=== PATIENT | male | born 2000 | race Caucasian/White ===

== ENCOUNTER 2019-04-14 11:15 | Observation (INO) | payer BC ==
[2019-04-14 12:24] LABS: HCT 38.8 % (39.0-53.0); HGB 13.9 gm/dL (13.0-17.5); MCHC 35.7 g/dL (31.0-37.0); MCV 86.7 fL (80.0-100.0); Mean Platelet Volume 7.8; Platelet Count 142 k/uL (150-450); RBC 4.48 m/uL (4.30-5.90); RDW 13.3 % (11.5-15.5); WBC 4.7 k/uL (3.8-10.6)
[2019-04-14 12:32] LABS: ALT 22 U/L (4-49); AST 30 U/L (17-59); African American GFR (CKD) >90 (>60 ml/min/1.73 sqM); Albumin 4.5 g/dL (3.5-5.0); Alkaline Phosphatase 70 U/L (38-126); Anion Gap 10 mmol/L; Blood Urea Nitrogen 17 mg/dL (9-20); Calcium 9.3 mg/dL (8.4-10.2); Carbon Dioxide 25 mmol/L (22-30); Chloride 104 mmol/L (98-107); Glucose 90 mg/dL (74-99); Non-African American GFR(CKD) >90 (>60 ml/min/1.73 sqM); Potassium 4.2 mmol/L (3.5-5.1); Sodium 139 mmol/L (137-145); Total Protein 7.8 g/dL (6.3-8.2)
[2019-04-14 12:38] LABS: D-Dimer 0.55 mg/L FEU (<0.60); INR 1.1 (<1.2); Partial Thromboplastin Time 24.3 sec (22.0-30.0); Prothrombin Time 11.3 sec (9.0-12.0)
--- NOTE | 2019-04-14 12:48 | XR ---
EXAMINATION TYPE: XR chest 2V DATE OF EXAM: 04/14/2019 COMPARISON: NONE HISTORY: Chest pain TECHNIQUE: Frontal and lateral views of the chest are obtained. FINDINGS: There is no focal air space opacity. No evidence for pneumothorax. No pleural effusion. The cardiac silhouette size is within normal limits. The osseous structures are grossly intact. IMPRESSION: 1. No acute cardiopulmonary process.
[2019-04-14 13:11] LABS: Band Neutrophils % 3 %; Eosinophils # (M) 0.05 k/uL (0-0.7); Lymphocytes # (M) 0.89 k/uL (1.0-4.8); Metamyelocytes # (M) 0.05 k/uL (0); Metamyelocytes % 1 %; Monocytes # (M) 0.89 k/uL (0-1.0); Neutrophils % (M) 59 %; Nucleated Red Blood Cells 0 /100 WBC (0-0); Total Cells Counted 200
[2019-04-14] MEDS ORDERED: ASPIRIN 81 MG PO STA (13:55)
[2019-04-14] MEDS ORDERED: NITROGLYCERIN OINT 1 INCH/GM PACKET TOPICAL STA (14:02)
[2019-04-14] MEDS ORDERED: MORPHINE SULFATE 4 MG/ML SYRINGE IVP STA (14:02)
--- NOTE | 2019-04-14 14:25 | ED ---
Chest Pain HPI - General Source: patient Mode of arrival: ambulatory Limitations: no limitations <Anuja Ken - Last Filed: 04/14/19 16:06> <Char Comer - Last Filed: 04/22/19 13:08> - General Chief Complaint: Chest Pain Stated Complaint: chest pain, shoulder pain Time Seen by Provider: 04/14/19 11:49 - History of Present Illness Initial Comments: 19-year-old male with history of heart murmur at , Erica ashley, presenting to the emergency department today for chief complaint of chest pain. Patient states she has had chest pressure since Thursday. Patient states she has also noted that he has pain is low back that extends up towards the shoulders bilaterally. Patient states that he has had a tough work week and his uncle is similar symptoms he's not sure if the back pain is associated given he has been doing a lot of heavy lifting during demolition. Patient states he has slight SOB, denies fever, IVDU, or URI symptoms. Patients denies cough. State he had slight headache yesterday that resolved. Patient denies hemoptysis, leg swelling, history of sudden at young age, denies any ripping tearing or sharp sensation, denies pleurtic chest pain. Patient was cleared by [facility] per mother for the heart murmur and had additional evaluation and clearance for sports. Denies any presyncope during vigorious activity. Patient states lifting made pain worse, but denies any increase with ambulation or other activities. When pain persisted today he told his famiyl who recommended coming to the ER. Upon arrival patient does not appear in acute distress. He is pleasant, no diaphoresis or levign sign. HR elevated, mild elevation of BP. (Anuja Ken) - Related Data Home Medications Medication Instructions Recorded Confirmed No Known Home Medications 04/14/19 04/14/19 Allergies Allergy/AdvReac Type Severity Reaction Status Date / Time No Known Allergies Allergy Verified 04/14/19 19:02 Review of Systems ROS Other: All systems not noted in ROS Statement are negative. <Anuja Ken - Last Filed: 04/14/19 16:06> ROS Other: All systems not noted in ROS Statement are negative. <Char Comer - Last Filed: 04/22/19 13:08> ROS Statement: Those systems with pertinent positive or pertinent negative responses have been documented in the HPI. EKG Findings - EKG Comments: EKG Findings:: Initial EKG obtained at 1213 ventricular rate 86 bpm, OK interval 166 ms, QRS latter-day 88 ms, QT/QTc is 326/[address] elevation in contiguous leads, <2mm present in V4. No ST depression or reciprocal changes. Second EKG obtained at 1522: Ventricular rate 87 bpm, OK interval 154 ms, QR latter-day 90 ms, QT/QTC 340/409 ms. This is normal sinus. No ST elevation or depression again appreciated no reciprocal changes noted. Both EKGs were personally reviewed by myself and my attending provider. <Anuja Ken - Last Filed: 04/14/19 16:06> Past Medical History Additional Past Medical History / Comment(s): heart murmur History of Any Multi-Drug Resistant Organisms: None Reported Past Surgical History: No Surgical Hx Reported Past Psychological History: No Psychological Hx Reported Smoking Status: Smoker, current status unknown Past Alcohol Use History: None Reported Past Drug Use History: None Reported <Anuja Ken - Last Filed: 04/14/19 16:06> General Exam Limitations: no limitations <Anuja Ken - Last Filed: 04/14/19 16:06> - General Exam Comments Initial Comments: General: The patient is awake and alert, in no distress, and does not appear acutely ill. Eye: +3 mm pupils are equal, round and reactive to light, extra-ocular movements are intact. No nystagmus. There is normal conjunctiva bilaterally. No signs of icterus. Ears, nose, mouth and throat: There are moist mucous membranes and no oral lesions. Neck: The neck is supple, there is no tenderness or JVD. Cardiovascular: There is a regular rate and rhythm. No discernable murmur, No rub or gallop is appreciated. Respiratory: Lungs are clear to auscultation, respirations are non-labored, breath sounds are equal. No wheezes, stridor, rales, or rhonchi. Gastrointestinal: non-distended, non-tender abdomen without masses or organomegaly noted. There is no rebound or guarding present. Musculoskeletal: Normal inspection of the back reproducible tenderness to palpation of the paravertebral muscles of the thoracic and lumbar spine. Normal ROM, no tenderness. Strength 5/5. Sensation intact. Radial and DP pulses equal bilaterally 2+. Neurological: A&O x 3. CN II-XII intact grossly, There are no obvious motor or sensory deficits. Coordination appears grossly intact. Speech is normal. Skin: Skin is warm and dry and no rashes or lesions are noted. No LE edema, or calf pain Psychiatric: Cooperative, appropriate mood & affect, normal judgment. (Anuja Ken) Course <Anuja Ken - Last Filed: 04/14/19 16:06> Vital Signs 04/14/19 04/14/19 04/14/19 11:29 13:31 14:41 Temperature 99.2 F Pulse Rate 108 H 85 81 Pulse Rate [ Manager Home ] Respiratory 19 18 18 Rate Blood Pressure 127/72 139/87 145/75 Blood Pressure [Right Arm] O2 Sat by Pulse 98 98 100 Oximetry 04/14/19 04/14/19 04/14/19 14:43 17:36 20:31 Temperature 98.3 F Pulse Rate 85 Pulse Rate [ 85 Manager Home ] Respiratory 18 18 Rate Blood Pressure 130/83 Blood Pressure 148/84 [Right Arm] O2 Sat by Pulse 97 97 Oximetry 04/14/19 20:41 Temperature 98.0 F Pulse Rate Pulse Rate [ 84 Manager Home ] Respiratory 16 Rate Blood Pressure Blood Pressure 148/84 [Right Arm] O2 Sat by Pulse 98 Oximetry - Reevaluation(s) Reevaluation #1: Cardiology consulted, faxed EKGs, spoke with cardiac slab worker nurse Jorge who was speaking for farm management teacher-- recommended admission with heparin, ECHO. Patient remains stable in ER. 04/14/19 16:10 (Anuja Ken) Chest Pain MDM <Anuja Ken - Last Filed: 04/14/19 16:06> <Char Comer - Last Filed: 04/22/19 13:08> - MDM Very well appearing 19-year-old male presenting for chest pressure since Thursday. Patient has history of vigorous activity and was also complaining of back and shoulder pain after she felt this was musculoskeletal that was reproducible on examination. Did not initially appear typical. Patient's EKG nonacute findings. Troponin revealed elevation at 0.295. This is concerning given family history of premature CAD. Patient CXR no acute findings. CT angio (-) for dissection pulmonary embolism. Patient VS remain stable in the ER. Patient temperature throughout visit 99.1F. Patient denies URI symptoms. At this time it is not clear etiology, ddx including myocardiopathy, NSTEMI--patient has no murmur obvious to auscultation cannot r/o valvular disease. Patient is agreeable to admission. Denies melanotic stool. Heparin initiated in the ER. Patient admitted appearing well in stable condition. I did discuss case at length with Dr. Comer who is agreeable to plan, and admission. (Anuja Ken) I was available for consultation in the emergency department. The history and physical exam were done by the midlevel provider. I was consulted for this patients care. I reviewed the case with the midlevel provider and based on their presentation of the patient, I agree with the assessment, medical decision making and plan of care as documented. The case was discussed with Dr. Manning and the farm management teacher conveyor operator who recommended heparinizing the patient as he does not have any contraindications. The patient was admitted to the floor in stable condition. Chart was dictated using [employer] dictation software. Attempts were made to correct any dictation errors however some typographical errors may persist. (Char Comer) Disposition Is patient prescribed a controlled substance at d/c from ED?: No Time of Disposition: 16:07 Decision to Admit Reason: Admit from EC Decision Date: 04/14/19 Decision Time: 16:07 <Anuja Ken - Last Filed: 04/14/19 16:06> <Char Comer - Last Filed: 04/22/19 13:08> Clinical Impression: Chest pain, Elevated troponin, NSTEMI (non-ST elevated myocardial infarction) Disposition: ADMITTED IP TO THIS [facility] Condition: Serious
[2019-04-14] MEDS ORDERED: ONDANSETRON 4 MG/2 ML VIAL IVP STA (14:32)
--- NOTE | 2019-04-14 14:58 | CT ---
EXAMINATION TYPE: CT angio thor/abd pel aorta DATE OF EXAM: 04/14/2019 COMPARISON: none HISTORY: Chest pain and traci arm pain and neck pain CT DLP: 1348.5 mGycm CONTRAST: CTA thoracic and abdominal aorta with 3-D reconstruction is performed and without and with IV Contras t, patient injected with 100 mL of Isovue 370. Contrast CTA of the thoracic and abdominal aorta was performed from the lung apex through the base of the pelvis. 3-D reconstruction imaging obtained at a separate workstation. CT Chest: THORACIC AORTA: There is no evidence for aneurysm. No dissection or mediastinal hematoma. Mild ath eromatous changes are seen. LUNGS: The lungs are clear and free of infiltrate or atelectasis. No pulmonary nodule or mass is det ected. No pleural effusion or CT evidence of interstitial lung disease. MEDIASTINUM: No evidence for pulmonary embolism. The heart is not enlarged. No evidence for mediasti nal mass or adenopathy. HILAR STRUCTURES: No evidence for mass. No hilar adenopathy is appreciated. OTHER: No significant abnormality. CONTRAST CT ABDOMEN AND PELVIS ABDOMINAL AORTA: No evidence for abdominal aortic aneurysm. No dissection. Iliac vessels are symmet lee and patent. LIVER/GB- No significant abnormality is seen. PANCREAS- No significant abnormality is seen. SPLEEN- No significant abnormality is seen. ADRENALS- No significant abnormality is seen. KIDNEYS/BLADDER- No significant abnormality is seen. BOWEL- No Significant abnormality GENITAL ORGANS: No gross abnormality seen. LYMPH NODES- No greater than 1cm abdominal or pelvic lymph nodes areappreciated. OSSEOUS STRUCTURES- No significant abnormality is seen. OTHER- No significant abnormality is seen. IMPRESSION- No evidence for dissection or pulmonary embolism.
[2019-04-14] MEDS ORDERED: HEPARIN SODIUM,PORCINE 5,000 UNIT/ML 1 ML VIAL IV ONE (15:54)
[2019-04-14] MEDS ORDERED: HEPARIN SODIUM,PORCINE 5,000 UNIT/ML 1 ML VIAL IV PRN (15:54)
[2019-04-14] MEDS ORDERED: HEPARIN SOD,PORK IN 0.45% NACL 25,000 UNIT in 0.45% NACL 1 250ML.BAG IV SCH (16:00)
[2019-04-14 16:04] LABS: Appearance,Urine Clear (Clear); Bilirubin,Urine Negative (Negative); Blood,Urine Negative (Negative); Color,Urine Yellow; Glucose,Urine (UA) Negative (Negative); Ketones,Urine 1+ (Negative); Leukocyte Esterase,Urine Negative (Negative); Nitrite,Urine Negative (Negative); PH, Urine 6.5 (5.0-8.0); Protein,Urine Negative (Negative); Urobilinogen,Urine <2.0 mg/dL (<2.0)
[2019-04-14 16:13] LABS: Amphetamine Screen,Urine Not Detected (NotDetected); Barbiturate Screen,Urine Not Detected (NotDetected); Benzodiazepines Screen,Urine Not Detected (NotDetected); Cocaine Screen,Urine Not Detected (NotDetected); Methadone Screen, Urine Not Detected (NotDetected); Opiate Screen,Urine Detected (NotDetected); Oxycodone Screen, Urine Not Detected (NotDetected); Phencyclidine Screen,Urine Not Detected (NotDetected); Tricyclic Antidepressant,Urine Not Detected (NotDetected); Urn Cannabinoid Scrn Not Detected (NotDetected)
[2019-04-14] MEDS ORDERED: NITROGLYCERIN SL TABS 0.4 MG TAB SUBLINGUAL PRN (16:14)
[2019-04-14 16:31] LABS: Specific Gravity,Urine >1.050 (1.001-1.035)
[2019-04-14] MEDS ORDERED: ACETAMINOPHEN TAB 325 MG TAB PO STA (17:21)
[2019-04-14] MEDS ORDERED: MORPHINE SULFATE 2 MG/ML SYRINGE IVP PRN (23:04)
--- NOTE | 2019-04-14 23:44 | P.HPIM ---
History of Present Illness H&P Date: 04/14/19 Chief Complaint: Chest pain Patient is a 19-year-old male with a known history of heart murmur at and was seen at [facility], cleared for sports during his eighth grade, currently [employer] socially came to ER with the complaints of chest pain. Patient says that he woke up with chest pain on Thursday morning, daily pressure-like right upper chest and radiated into the left shoulder and arm and to the back. He needs assist with shortness of breath and nausea, episodes of vomiting. Patient also felt sweaty and dizzy. Patient cannot likely related to gastric reflex. Pain has been on and off since then. Patient says that he has had a rough week with a lot of heavy lifting during the motion. Otherwise denied any cough or sputum production. Patient did have slight headache. No leg swelling. No orthopnea no PND. Denied any hematemesis or melena. No complaints of abdominal pain. Denied any syncopal episode. Denied any exertional dyspnea. Patient has been this persistent pain since Thursday and he told his family who recommended to come to ER. Patient was tachycardic with heart rate 108 on admission. Blood pressure is stable. EKG showed normal sinus rhythm. Chest x-ray showed no acute cardio pulmonary process CT thorax no evidence of dissection or pulmonary embolism. Troponin 0.294, 0.366 D-dimer not elevated. CK 72 UDS positive for opiates. Other laboratory data reviewed. Review of Systems Constitutional: Patient denies any fever or chills . No generalized weakness or weight loss. Abdomen: Patient denied nausea vomiting and diarrhea and abdominal pain. Cardiovascular: Patient does have chest pain with of breath no palpitations. No leg swelling Respiratory: patient denied any cough is from production. No shortness of breath Neurologic: Patient denied any numbness or tingling headache. Musculoskeletal: Patient denies any complaints of joint swelling or deformity. Skin: Negative Psychiatric: Negative Endocrine: No heat or cold intolerance. No recent weight gain. Genitourinary: No dysuria or hematuria. All other 14 point ROS negative except the above Past Medical History Additional Past Medical History / Comment(s): heart murmur History of Any Multi-Drug Resistant Organisms: None Reported Past Surgical History: No Surgical Hx Reported Past Psychological History: No Psychological Hx Reported Smoking Status: Smoker, current status unknown Past Alcohol Use History: None Reported Past Drug Use History: None Reported Medications and Allergies Home Medications Medication Instructions Recorded Confirmed Type No Known Home Medications 04/14/19 04/14/19 History Allergies Allergy/AdvReac Type Severity Reaction Status Date / Time No Known Allergies Allergy Verified 04/14/19 19:02 Physical Exam Vitals: Vital Signs Temp Pulse Resp BP Pulse Ox 04/14/19 17:36 85 18 130/83 97 04/14/19 14:43 98.3 F 04/14/19 14:41 81 18 145/75 100 04/14/19 13:31 85 18 139/87 98 04/14/19 11:29 99.2 F 108 H 19 127/72 98 Intake and Output 04/14/19 04/14/19 04/14/19 06:59 14:59 22:59 Other: Weight 95.028 kg PHYSICAL EXAMINATION: Patient is lying in the bed comfortably, no acute distress, awake alert and oriented.. HEENT: Normocephalic. Neck is supple. Pupils reactive. Nostrils clear. Oral cavity is moist. Ears reveal no drainage. Neck reveals no JVD, carotid bruits, or thyromegaly. CHEST EXAMINATION: Trachea is central. Symmetrical expansion. Lung dalton clear to auscultation and percussion. CARDIAC: Normal S1, S2 with no gallops. No murmurs ABDOMEN: Soft. Bowel sounds normal. No organomegaly. No abdominal bruits. Extremities: reveal no edema. No clubbing or cyanosis Neurologically awake, alert, oriented x3 with well-coordinated movements. No focal deficits noted Skin: No rash or skin lesions. Psychiatric: Coperative. Nonsuicidal Musculoskeletal: No joint swelling or deformity. Normal range of motion. Results CBC & Chem 7: 04/14/19 12:07 04/14/19 12:07 Labs: Abnormal Lab Results - Last 24 Hours (Table) 04/14/19 04/14/19 04/14/19 Range/Units 12:07 12:07 15:41 Hct 38.8 L (39.0-53.0) % Plt Count 142 L (150-450) k/uL Lymphocytes # (Manual) 0.89 L (1.0-4.8) k/uL Metamyelocytes # (Man) 0.05 H (0) k/uL Troponin I 0.294 H* (0.000-0.034) ng/mL Ur Specific [place] >1.050 H (1.001-1.035) Urine Ketones 1+ H (Negative) Urine Opiates Screen Detected H (NotDetected) 04/14/19 Range/Units 18:44 Hct (39.0-53.0) % Plt Count (150-450) k/uL Lymphocytes # (Manual) (1.0-4.8) k/uL Metamyelocytes # (Man) (0) k/uL Troponin I 0.366 H* (0.000-0.034) ng/mL Ur Specific [place] (1.001-1.035) Urine Ketones (Negative) Urine Opiates Screen (NotDetected) Thrombosis Risk Factor Assmnt - DVT/VTE Prophylaxis DVT/VTE Prophylaxis: Pharmacologic Prophylaxis ordered Assessment and Plan Assessment: Acute non-ST elevated NH with elevated troponin levels History of heart murmur since childhood Social Vaping UDS positive for opiates Plan: Patient is being continued on heparin drip. Continue with aspirin. Lipid profile was ordered. Continue with telemetry monitoring and cardiology was consulted. Discussed with his family at bedside in detail. Further recommendations based on the clinical course. Time with Patient: Greater than 30
[2019-04-14] MEDS: ACETAMINOPHEN TAB 325 MG TAB PO PRN (23:59)
[2019-04-15 07:05] LABS: Cholesterol 107 mg/dL (<200); HDL Cholesterol 35 mg/dL (40-60); LDL Cholesterol,Calculated 55 mg/dL (0-99); Triglycerides 83 mg/dL (<150)
[2019-04-15 08:22] LABS: HCT 39.5 % (39.0-53.0); HGB 14.1 gm/dL (13.0-17.5); MCH 31.1 pg (25.0-35.0); MCHC 35.7 g/dL (31.0-37.0); MCV 87.2 fL (80.0-100.0); Mean Platelet Volume 8.6; Platelet Count 116 k/uL (150-450); RBC 4.53 m/uL (4.30-5.90); RDW 13.3 % (11.5-15.5); WBC 4.2 k/uL (3.8-10.6)
[2019-04-15] MEDS ORDERED: ASPIRIN 325 MG TAB PO SCH (09:00)
[2019-04-15 09:48] LABS: Band Neutrophils % 3 %; Lymphocytes # (M) 1.55 k/uL (1.0-4.8); Neutrophils % (M) 48 %; Nucleated Red Blood Cells 0 /100 WBC (0-0); Total Cells Counted 100
[2019-04-15] MEDS ORDERED: ALPRAZolam 0.5 MG TAB PO PRN (10:18)
[2019-04-15] MEDS ORDERED: SODIUM CHLORIDE 0.9% 1,000 ML in EMPTY BAG 1 BAG IV ONE (10:18)
[2019-04-15] MEDS ORDERED: ATORVASTATIN 80 MG TAB PO STA (10:18)
[2019-04-15] MEDS ORDERED: ALPRAZolam 0.25 MG TAB PO PRN (10:18)
[2019-04-15] MEDS ORDERED: LIDOCAINE 1% INJ 10MG/ML (20 ML MDV) ONE ×2 (10:47)
--- NOTE | 2019-04-15 11:01 | ECHOF ---
Referral Reason:chest pain, trop MEASUREMENTS -------- HEIGHT: 185.4 cm WEIGHT: 94.8 kg BP: RVIDd: 2.7 cm (< 3.3) IVSd: 0.8 cm (0.6 - 1.1) LVIDd: 4.4 cm (3.9 - 5.3) LVPWd: 1.1 cm (0.6 - 1.1) IVSs: 1.5 cm LVIDs: 3.1 cm LVPWs: 1.3 cm LAESV Index (A-L): 17.42 ml/m Ao Diam: 2.6 cm (2.0 - 3.7) AV Cusp: 2.0 cm (1.5 - 2.6) LA Diam: 2.9 cm (2.7 - 3.8) MV EXCURSION: 22.777 mm (> 18.000) MV EF SLOPE: 180 mm/s (70 - 150) EPSS: 0.3 cm MV E Kris: 0.95 m/s MV DecT: 183 ms MV A Kris: 0.54 m/s MV E/A Ratio: 1.75 RAP: 5.00 mmHg RVSP: 22.12 mmHg TAPSE: 20.61 mm FINDINGS -------- Sinus rhythm. This was a technically good study. Grossly normal LV size and systolic function. Unable to comment on regional wall motion. Left ventr icular wall thickness is normal. Overall left ventricular systolic function is normal with, an EF b etween 55 - 60 %. The diastolic filling pattern is normal for the age of the patient 12.15. The right ventricle is normal in size. The right ventricular systolic function is normal. The left atrial size is normal. Normal LA size by volume 22+/-6 ml/m2. The right atrial size is normal. The aortic valve is trileaflet and appears structurally normal. The mitral valve is normal. There is trace mitral regurgitation. The tricuspid valve appears structurally normal. Trace tricuspid regurgitation present. Right susy tricular systolic pressure is normal at < 35 mmHg. There is no pulmonic regurgitation present. The aortic root size is normal. Normal inferior vena cava with normal inspiratory collapse consistent with estimated right atrial pre ssure of 5 mmHg. There is no pericardial effusion. CONCLUSIONS -------- 1. Sinus rhythm. 2. This was a technically good study. 3. Grossly normal LV size and systolic function. Unable to comment on regional wall motion. 4. Left ventricular wall thickness is normal. 5. Overall left ventricular systolic function is normal with, an EF between 55 - 60 %. 6. The diastolic filling pattern is normal for the age of the patient 12.15 7. The right ventricle is normal in size. 8. The right ventricular systolic function is normal. 9. The left atrial size is normal. 10. Normal LA size by volume 22+/-6 ml/m2. 11. The right atrial size is normal. 12. The aortic valve is trileaflet and appears structurally normal. 13. The mitral valve is normal. 14. There is trace mitral regurgitation. 15. The tricuspid valve appears structurally normal. 16. Trace tricuspid regurgitation present. 17. Right ventricular systolic pressure is normal at < 35 mmHg. 18. There is no pulmonic regurgitation present. 19. The aortic root size is normal. 20. Normal inferior vena cava with normal inspiratory collapse consistent with estimated right atrial pressure of 5 mmHg. 21. There is no pericardial effusion. ENGINEERING EXECUTIVE: Olivia Agrawal RDCS
[2019-04-15] MEDS ORDERED: fentaNYL (PF) 50 MCG/ML 2 ML AMP ONE (11:03)
[2019-04-15] MEDS ORDERED: IV FLUID CONTINUATION 900 ML IV ONE (11:08)
[2019-04-15] MEDS ORDERED: fentaNYL (PF) 50 MCG/ML 2 ML AMP IV ONE (11:24)
[2019-04-15] MEDS ORDERED: MIDAZOLAM 2 MG/2 ML VIAL IVP ONE (11:24)
[2019-04-15] MEDS ORDERED: LIDOCAINE 1% INJ 10MG/ML (20 ML MDV) SQ ONE (11:27)
[2019-04-15] MEDS ORDERED: IOPAMIDOL-370 125ML BTL INJ ONE (11:35)
[2019-04-15] MEDS ORDERED: RX INFO: IV CONTRAST WAS GIVEN 1 EACH MISC MISCELLANE PRN (11:59)
[2019-04-15] MEDS: ASPIRIN 81 MG PO SCH (12:26)
--- NOTE | 2019-04-15 12:29 | CC ---
CARDIAC CATHETERIZATION REPORT INDICATION: Non ST-segment elevation myocardial infarction. This is a 19-year-old gentleman who presented to hospital with chest pain and had mild troponin elevation, was evaluated by my associate, Dr. Dickens, who advised him to undergo cardiac catheterization. I have been asked to perform the procedure. Patient had been explained of risks, benefits and alternatives understood and accepted. PROCEDURE NOTE: After obtaining informed consent, left heart catheterization and coronary angiogram were performed via the right femoral artery using standard Deanne catheters. The patient tolerated the procedure well without any obvious immediate complications. A femoral angiogram was performed and Angio-Seal will be deployed for hemostasis. Patient received moderate conscious sedation. Total sedation time was 15 minutes. FINDINGS: 1. HEMODYNAMICS: Left ventricular end-diastolic pressure is 8 to 12 mm. There is no significant gradient across the aortic valve. 2. LEFT VENTRICULOGRAM: Left ventriculogram is not performed. 3. ANGIOGRAPHIC DATA: Left Main Coronary Artery: Left main coronary artery is a normal-sized vessel and is free of stenosis. Divides into left anterior descending coronary artery and circumflex coronary artery. LAD and its branches, circumflex coronary artery and its branches are free of significant stenosis. Right coronary artery is a large dominant vessel and is free of significant disease. CONCLUSIONS: 1. Normal coronary arteries. 2. Normal left ventricular end-diastolic pressure. PLAN: The patient's elevated troponin is not related to ischemic heart disease. MMODL / IJN: [id number] /
--- NOTE | 2019-04-15 13:22 | P.CRDCN ---
History of Present Illness History of present illness: This is Joan Banda PA-C dictating a consult on this patient The patient was interviewed and examined by me as well as by Dr. Dickens Case discussed with Dr. Dickens and he agrees with the plan of care HPI Patient is a 19-year-old male with a history of a heart murmur as a child who presented with complaints of chest discomfort. Approximately 5 days ago he woke up with chest discomfort in the center and right side of his chest. Throughout the day prior to his bilateral shoulders and back as well as his neck. The pain was constant. It was worse with moving and going to work. He also had associated shortness of breath and some pleuritic discomfort. He felt a little bit dizzy when he was standing. He felt the best when he was lying down. He had 3 episodes of nausea and vomiting. No diarrhea. No fevers chills, cough, congestion, runny nose or recent upper respiratory infections or GI illnesses. He had a mild form of this about a year ago and was seen in an urgent care and prescribed steroids but never took them. He drinks and states socially but denies any recreational drug use. After the discomfort continued for about 4 days and continued to get worse he decided to come to the emergency department for further evaluation. Upon presentation his vital signs were stable. His EKG showed sinus mechanism with very subtle minimal CA depression. Chest CT was negative for aneurysm or dissection. Troponins were abnormal. He was admitted for further evaluation. Patient seen and examined resting in bed. Continues to have mild discomfort, mostly in the shoulders. States he feels better when he lays down and worse when he gets up ROS: No fevers, chills or rigors, no cough, phlegm or expectoration, As a for nausea and vomiting, no diarrhea, no hematuria, dysuria, Positive for shoulder pain no strokes or seizures, no skin lesions. EXAMINATION: Patient is afebrile, pulse in the 80s, respirations 18, blood pressure 120/80, oxygen saturation 97% on room air Patient seen and examined resting in bed, appears in no acute distress Lungs are clear to auscultation bilaterally no wheezing rhonchi or crackles Heart is regular, normal S1 and S2, soft systolic murmur audible, no rubs or gallops No elevated JVD No lower extremity edema Abdomen is soft and nontender palpation REVIEW OF LABS, ECG & MEDICAL DATA WBC 4.2, hemoglobin 14.1, platelets 116, potassium 4.2, BUN 17, creatinine 0.97 Troponin 0.197, 0.366, 0.294 IMPRESSION / ASSESSMENT: 4 days of atypical chest discomfort with associated back and shoulder discomfort, pleuritic chest pain, shortness of breath, nausea and vomiting, with abnormal troponin likely viral myocarditis Non-ST elevation [place] secondary to above PLAN: Dr. Dickens spoke with Dr. Lai, plan for heart catheterization Echocardiogram has been ordered Viral titers Past Medical History Additional Past Medical History / Comment(s): heart murmur History of Any Multi-Drug Resistant Organisms: None Reported Past Surgical History: No Surgical Hx Reported Past Psychological History: No Psychological Hx Reported Smoking Status: Smoker, current status unknown Past Alcohol Use History: None Reported Past Drug Use History: None Reported Medications and Allergies Home Medications Medication Instructions Recorded Confirmed Type No Known Home Medications 04/14/19 04/14/19 History Allergies Allergy/AdvReac Type Severity Reaction Status Date / Time No Known Allergies Allergy Verified 04/14/19 19:02 Physical Exam Vitals: Vital Signs Temp Pulse Pulse Resp BP BP BP 04/15/19 12:59 82 16 106/63 04/15/19 12:44 127/76 04/15/19 12:24 80 16 123/82 04/15/19 12:09 77 18 137/78 04/15/19 08:10 98.9 F 78 12 113/73 04/15/19 04:00 98.7 F 77 12 116/58 04/15/19 00:00 99.4 F 86 16 131/69 04/14/19 21:45 98.1 F 83 16 136/73 04/14/19 20:41 98.0 F 84 16 148/84 04/14/19 20:31 85 18 148/84 04/14/19 17:36 85 18 130/83 04/14/19 14:43 98.3 F 04/14/19 14:41 81 18 145/75 04/14/19 13:31 85 18 139/87 Pulse Ox 04/15/19 12:59 97 04/15/19 12:44 04/15/19 12:24 97 04/15/19 12:09 97 04/15/19 08:10 97 04/15/19 04:00 97 04/15/19 00:00 98 04/14/19 21:45 100 04/14/19 20:41 98 04/14/19 20:31 97 04/14/19 17:36 97 04/14/19 14:43 04/14/19 14:41 100 04/14/19 13:31 98 Intake and Output 04/14/19 04/15/19 04/15/19 22:59 06:59 14:59 Intake Total 81.833 50 Balance 81.833 50 Intake: IV 50 Intake, IV Titration 81.833 Amount Heparin Sod,Pork in 0.45% 81.833 NaCl 25,000 unit In 0.45 % NaCl 1 250ml.bag @ 10. 523 UNITS/KG/HR 10 mls/hr IV .Q24H [facility] Rx#: [id number] Other: Voiding Method Toilet Toilet Toilet # Voids 1 Weight 95.028 kg 92.714 kg Results 04/15/19 06:23 04/14/19 12:07 Cardiac Enzymes 04/14/19 04/14/19 04/15/19 Range/Units 12:07 18:44 00:18 Troponin I 0.294 H* 0.366 H* 0.197 H* (0.000-0.034) ng/mL Coagulation 04/15/19 04/15/19 Range/Units 00:18 06:23 APTT 42.2 H 46.6 H (22.0-30.0) sec Lipids 04/15/19 Range/Units 06:23 Triglycerides 83 (<150) mg/dL Cholesterol 107 (<200) mg/dL HDL Cholesterol 35 L (40-60) mg/dL CBC 04/15/19 Range/Units 06:23 WBC 4.2 (3.8-10.6) k/uL RBC 4.53 (4.30-5.90) m/uL Hgb 14.1 (13.0-17.5) gm/dL Hct 39.5 (39.0-53.0) % Plt Count 116 L (150-450) k/uL Current Medications Generic Name Dose Route Start Last Admin Trade Name Freq PRN Reason Stop Dose Admin Acetaminophen 650 mg 04/14/19 23:05 04/14/19 23:59 Tylenol Tab PO 650 mg Q4HR PRN Administration Fever and/ or Pain Alprazolam 0.25 mg 04/15/19 10:18 Xanax PO Q6HR PRN Mild Anxiety Alprazolam 0.5 mg 04/15/19 10:18 Xanax PO Q6HR PRN Moderate Anxiety Aspirin 81 mg 04/16/19 09:00 04/15/19 12:26 Aspirin PO Not Given DAILY [facility] Heparin Sodium (Porcine) 0 unit 04/14/19 15:54 Heparin IV PER PROTOCOL PRN Low PTT Protocol Sodium Chloride 1,000 ml/ IV 1,000 mls @ 92.714 mls/hr 04/15/19 10:18 04/15/19 10:40 Solution IV 04/15/19 21:05 92.714 mls/hr .[id number] ONE Administration 1 ML/KG/HR Miscellaneous Information 1 each 04/15/19 11:59 Rx Info: Iv Contrast Was Given MISCELLANE 04/17/19 11:59 DAILY PRN Per Protocol Morphine Sulfate 2 mg 04/14/19 23:04 Morphine Sulfate (Inj) IVP Q4H PRN Pain/Discomfort Nitroglycerin 0.4 mg 04/14/19 16:14 Nitrostat SUBLINGUAL Q5M PRN Chest Pain Intake and Output 04/14/19 04/15/19 04/15/19 22:59 06:59 14:59 Intake Total 81.833 50 Balance 81.833 50 Intake: IV 50 Intake, IV Titration 81.833 Amount Heparin Sod,Pork in 0.45% 81.833 NaCl 25,000 unit In 0.45 % NaCl 1 250ml.bag @ 10. 523 UNITS/KG/HR 10 mls/hr IV .Q24H [facility] Rx#: [id number] Other: Voiding Method Toilet Toilet Toilet # Voids 1 Weight 95.028 kg 92.714 kg 04/15/19 06:23 04/14/19 12:07
[2019-04-15] MEDS: ACETAMINOPHEN TAB 325 MG TAB PO PRN (20:36)
[2019-04-16 06:36] LABS: HCT 38.5 % (39.0-53.0); HGB 13.2 gm/dL (13.0-17.5); MCHC 34.3 g/dL (31.0-37.0); MCV 87.3 fL (80.0-100.0); Mean Platelet Volume 8.5; Platelet Count 113 k/uL (150-450); RBC 4.41 m/uL (4.30-5.90); RDW 13.2 % (11.5-15.5); WBC 3.4 k/uL (3.8-10.6)
[2019-04-16 07:18] LABS: Band Neutrophils % 12 %; Eosinophils # (M) 0.03 k/uL (0-0.7); Lymphocytes # (M) 1.26 k/uL (1.0-4.8); Monocytes # (M) 0.48 k/uL (0-1.0); Neutrophils % (M) 36 %; Nucleated Red Blood Cells 0 /100 WBC (0-0); Total Cells Counted 100
[2019-04-16 09:42] VITALS: RESP 12
[2019-04-16] MEDS: ASPIRIN 81 MG PO SCH (09:49)
[2019-04-16 13:47] VITALS: BP 110/63; PULSE 81; TEMP 97.7
--- NOTE | 2019-04-16 16:07 | P.PN ---
Subjective This is Joan Banda PA-C dictating a progress note on this patient The patient was interviewed and examined by me as well as by Dr. Dickens Case discussed with Dr. Dickens and he agrees with the plan of care HPI/interval history Patient is a 19-year-old male who presented with complaints of chest discomfort. He was found to have abnormal troponins. Yesterday he underwent coronary angiogram showing normal coronary arteries. Patient seen and examined resting in bed. States this pain has completely resolved. Denies any shoulder pain, chest pain or shortness of breath. Complains of mild soreness in the groin. EXAMINATION Patient is afebrile, pulse in the 80s, respirations 12, blood pressure 110/63, oxygen saturation 97% on room air Patient seen and examined lying in bed, appears comfortable Lungs are clear to auscultation bilaterally Heart is regular, soft systolic murmur Right groin access site tender to palpation, no palpable hematomas REVIEW OF LABS, ECG WBC 3.4, hemoglobin 13.2, platelets 113, Echocardiogram shows normal LV size and function, EF 55-60%, no pericardial effusion IMPRESSION / ASSESSMENT: Non-ST elevation PR, likely secondary to myocarditis, coronary angiogram showed normal coronary arteries PLAN: Patient is cleared for discharge from a cardiac standpoint Viral titers are pending Avoid strenuous activity for the next 3 months Follow-up outpatient in the next 2 weeks for groin check Objective - Vital Signs Vital signs: Vital Signs Temp 97.7 F 04/16/19 13:47 Pulse 81 04/16/19 13:47 Resp 12 04/16/19 13:47 BP 110/63 04/16/19 13:47 Pulse Ox 97 04/16/19 13:47 Intake & Output 04/15/19 04/16/19 04/16/19 18:59 06:59 18:59 Intake Total 272 240 Output Total 100 Balance 272 140 Weight 93.7 kg Intake: IV 50 Oral 222 240 Output: Urine 100 Other: Voiding Method Toilet Toilet # Voids 1 1 1 - Labs CBC & Chem 7: 04/16/19 05:53 04/14/19 12:07 Labs: Abnormal Lab Results - Last 24 Hours (Table) 04/16/19 Range/Units 05:53 WBC 3.4 L (3.8-10.6) k/uL Hct 38.5 L (39.0-53.0) % Plt Count 113 L (150-450) k/uL
[2019-04-18 10:43] LABS: Parvovirus B-19 IgG Antibodies 4.94 INDEX (<=0.90); Parvovirus B-19 IgM Antibodies 0.35 INDEX (<=0.90)
--- NOTE | 2019-04-20 13:31 | CDI ---
Documentation Clarification Form Date: 04/20/19 From: Genesis Thurston CCS Phone: If you have a question about this query, please contact Maria Esther Cleveland, Java [employer] Software Engineer at [phone] between 8am and 5pm. Admit Date: 04/14/19 Discharge Date: 04/16/19 Patient Name: Roderick Painter Visit Number: [id number] ATTENTION: The Clinical Documentation Specialists (CDI) and [facility] Coding Staff appreciate your assistance in clarifying documentation. Please respond to the clarification below the line at the bottom and electronically sign. The CDI & [facility] Coding staff will review the response and follow-up if needed. Please note: Queries are made part of the Legal Health Record. If you have any questions, please contact the author of this message via ITS. Dear Dr. Manning, Myocardial infarction likely secondary to viral myocarditis is documented in the: ED, H&P, consult, PNs Patient History/Risk Factors: Heart murmur, Vaping Clinical Indicators: Chest pain, shoulder pain Troponin: 0.294, 0.366, 0.197 EKG Results: Normal sinus rhythm Treatment: Heparin IV protocol PRN Consult: Srinivasa Cardiac Cath: Normal coronary arteries In order to capture the severity of condition and necessary documentation specificity, please clarify: Type of Infarction: Type II MS due to viral myocarditis Type II MS due to non infectious myocarditis MS ruled out Type II MS due to other Unable to determine Other Condition, please specify Type II MS due to viral myocarditis MTDD
[2019-04-25 21:26] LABS: Echovirus AB Type 11 <1:10 (<1:10); Echovirus AB Type 6 <1:10 (<1:10); Echovirus AB Type 7 <1:10 (<1:10)
--- NOTE | 2019-04-27 21:40 | P.PN ---
Subjective Progress Note Date: 04/15/19 Principal diagnosis: Acute CT with elevated troponin level Patient is a 19-year-old male with a known history of heart murmur at and was seen at [facility], cleared for sports during his eighth grade, currently VAPES socially came to ER with the complaints of chest pain. Patient says that he woke up with chest pain on Thursday morning, daily pressure-like right upper chest and radiated into the left shoulder and arm and to the back. He needs assist with shortness of breath and nausea, episodes of vomiting. Patient also felt sweaty and dizzy. Patient cannot likely related to gastric reflex. Pain has been on and off since then. Patient says that he has had a rough week with a lot of heavy lifting during the motion. Otherwise denied any cough or sputum production. Patient did have slight headache. No leg swelling. No orthopnea no PND. Denied any hematemesis or melena. No complaints of abdominal pain. Denied any syncopal episode. Denied any exertional dyspnea. Patient has been this persistent pain since Thursday and he told his family who recommended to come to ER. Patient was tachycardic with heart rate 108 on admission. Blood pressure is stable. EKG showed normal sinus rhythm. Chest x-ray showed no acute cardio pulmonary process CT thorax no evidence of dissection or pulmonary embolism. Troponin 0.294, 0.366 D-dimer not elevated. CK 72 UDS positive for opiates. Other laboratory data reviewed. 04/15/2019 Patient denied any complaints of chest pain or shortness of breath today. Patient underwent cardiac catheterization showed nonobstructive coronaries. Elevated troponin level could be due to viral myocarditis. 2-D echocardiogram showed normal ejection fraction. Continue to monitor the patient for another 24 hours. Fever or chills. No headache or dizziness or lightheadedness. No cough or sputum production. Current medications reviewed. Objective - Vital Signs Vital signs: Vital Signs Temp 98.9 F 04/15/19 14:59 Pulse 84 04/15/19 16:00 Resp 16 04/15/19 16:00 BP 116/75 04/15/19 15:59 Pulse Ox 98 04/15/19 15:59 Intake & Output 04/15/19 04/15/19 04/16/19 06:59 18:59 06:59 Intake Total 81.833 272 Balance 81.833 272 Weight 92.714 kg Intake: IV 50 Intake, IV Titration 81.833 Amount Heparin Sod,Pork in 0.45% 81.833 NaCl 25,000 unit In 0.45 % NaCl 1 250ml.bag @ 10. 523 UNITS/KG/HR 10 mls/hr IV .Q24H [facility] Rx#: [id number] Oral 222 Other: Voiding Method Toilet Toilet # Voids 1 1 - Exam PHYSICAL EXAMINATION: Patient is lying in the bed comfortably, no acute distress, awake alert and oriented.. HEENT: Normocephalic. Neck is supple. Pupils reactive. Nostrils clear. Oral cavity is moist. Ears reveal no drainage. Neck reveals no JVD, carotid bruits, or thyromegaly. CHEST EXAMINATION: Trachea is central. Symmetrical expansion. Lung dalton clear to auscultation and percussion. CARDIAC: Normal S1, S2 with no gallops. No murmurs ABDOMEN: Soft. Bowel sounds normal. No organomegaly. No abdominal bruits. Extremities: reveal no edema. No clubbing or cyanosis Neurologically awake, alert, oriented x3 with well-coordinated movements. No focal deficits noted Skin: No rash or skin lesions. Psychiatric: Coperative. Nonsuicidal Musculoskeletal: No joint swelling or deformity. Normal range of motion. - Labs CBC & Chem 7: 04/16/19 05:53 04/14/19 12:07 Labs: Abnormal Lab Results - Last 24 Hours (Table) 04/15/19 04/15/19 04/15/19 Range/Units 00:18 00:18 06:23 Plt Count 116 L (150-450) k/uL APTT 42.2 H (22.0-30.0) sec Troponin I 0.197 H* (0.000-0.034) ng/mL HDL Cholesterol (40-60) mg/dL 04/15/19 04/15/19 Range/Units 06:23 06:23 Plt Count (150-450) k/uL APTT 46.6 H (22.0-30.0) sec Troponin I (0.000-0.034) ng/mL HDL Cholesterol 35 L (40-60) mg/dL Assessment and Plan Assessment: Atypical chest pain and with abdominal troponins likely viral myocarditis. Status post cardiac catheterization showed normal coronaries. Acute non-ST elevated CT secondary to above. History of heart murmur since childhood Social Vaping UDS positive for opiates Plan: Patient is continued on heparin drip. Continued with aspirin. Lipid profile was ordered. Patient is status post cardiac catheterization with normal coronaries. Viral serology was ordered. Continue with telemetry monitoring and cardiology is following.. Discussed with his family at bedside in detail. Further recommendations based on the clinical course. Time with Patient: Greater than 30
--- NOTE | 2019-04-27 21:42 | P.DS ---
Providers Date of admission: 04/14/19 16:09 Expected date of discharge: 04/16/19 Attending physician: Brijesh Vidal Consults: 04/14/19 16:14 Consult Physician Urgent Consulting Provider: Srinivasa Dickens Consult Reason/Comments: NSTEMI, (you reviewed EKGs), elevated trop/chest pain Do you want consulting provider notified?: Yes Primary care physician: Jesse Burns Hospital Course: Discharge diagnosis Atypical chest pain and with abdominal troponins likely viral myocarditis. Status post cardiac catheterization showed normal coronaries. Acute non-ST elevated [place] secondary to above. History of heart murmur since childhood Social Vaping UDS positive for opiates Hospital course Patient is a 19-year-old male with a known history of heart murmur at and was seen at [facility], cleared for sports during his eighth grade, currently VAPES socially came to ER with the complaints of chest pain. Patient says that he woke up with chest pain on Thursday morning, daily pressure-like right upper chest and radiated into the left shoulder and arm and to the back. He needs assist with shortness of breath and nausea, episodes of vomiting. Patient also felt sweaty and dizzy. Patient cannot likely related to gastric reflex. Pain has been on and off since then. Patient says that he has had a rough week with a lot of heavy lifting during the motion. Otherwise denied any cough or sputum production. Patient did have slight headache. No leg swelling. No orthopnea no PND. Denied any hematemesis or melena. No complaints of abdominal pain. Denied any syncopal episode. Denied any exertional dyspnea. Patient has been this persistent pain since Thursday and he told his family who recommended to come to ER. Patient was tachycardic with heart rate 108 on admission. Blood pressure is stable. EKG showed normal sinus rhythm. Chest x-ray showed no acute cardio pulmonary process CT thorax no evidence of dissection or pulmonary embolism. Troponin 0.294, 0.366 D-dimer not elevated. CK 72 UDS positive for opiates. Other laboratory data reviewed. 04/15/2019 Patient denied any complaints of chest pain or shortness of breath today. Patient underwent cardiac catheterization showed nonobstructive coronaries. Elevated troponin level could be due to viral myocarditis. 2-D echocardiogram showed normal ejection fraction. Continue to monitor the patient for another 24 hours. Fever or chills. No headache or dizziness or lightheadedness. No cough or sputum production. 04/16/2019 Patient denied any new complaints today. No chest pain or shortness breath. Patient is symptomatic otherwise. Patient has been afebrile. Vital serologies pending. Patient is being discharged home and follow-up with cardiology in the clinic. PHYSICAL EXAMINATION: Patient is lying in the bed comfortably, no acute distress, awake alert and oriented.. HEENT: Normocephalic. Neck is supple. Pupils reactive. Nostrils clear. Oral cavity is moist. Ears reveal no drainage. Neck reveals no JVD, carotid bruits, or thyromegaly. CHEST EXAMINATION: Trachea is central. Symmetrical expansion. Lung dalton clear to auscultation and percussion. CARDIAC: Normal S1, S2 with no gallops. No murmurs ABDOMEN: Soft. Bowel sounds normal. No organomegaly. No abdominal bruits. Extremities: reveal no edema. No clubbing or cyanosis Neurologically awake, alert, oriented x3 with well-coordinated movements. No focal deficits noted Skin: No rash or skin lesions. Psychiatric: Coperative. Nonsuicidal Musculoskeletal: No joint swelling or deformity. Normal range of motion. Vital Signs Temp 97.7 F 04/16/19 13:47 Pulse 81 04/16/19 13:47 Resp 12 04/16/19 13:47 BP 110/63 04/16/19 13:47 Pulse Ox 97 04/16/19 13:47 Patient Condition at Discharge: Fair Plan - Discharge Summary New Discharge Prescriptions: Continue No Known Home Medications Discharge Medication List No Known Home Medications 04/14/19 [History] Follow up Appointment(s)/Referral(s): rSinivasa Dickens MD [STAFF PHYSICIAN] - 04/22/19 10:00 am (Clinical Rehabilitation Coordinator- With Beena [facility]) Jesse Burns DO [Primary Care Provider] - 04/25/19 2:15 pm Patient Instructions/Handouts: *Surgery [facility] - After Heart Catheterization - Production Foreman Instructions, Chest Pain (DC), Heart Healthy Diet (DC) Activity/Diet/Wound Care/Special Instructions: CARDIAC CATH 1. Support your puncture site by applying firm, steady pressure whenever you cough, laugh, sneeze or bear down to have a bowel movement (2-day restriction). 2. Watch for any excessive bruising, active bleeding, a firm knot forming under your skin, extreme tenderness and signs of infection (redness, swelling, fever). 3. Shower daily, do not soak puncture in a tub bath, jacuzzi, pool, arthur etc. for 1 week. This is to prevent risk of infection. 4. Drink plenty of fluids the day of and day after your procedure to flush contrast dye out of your kidneys. 5. Take all medications as directed. Never stop any new medication without your physicians OK. 6. No driving for 2 days after procedure. 7. 10- pound weight lifting restriction for 1 week. 8. Low sodium/low fat diet. 9. Activity limited until follow up appointment with your division road supervisor. In case of any problems, please call [facility] [place] @ [phone]. Discharge/Stand Alone Forms: Work/School Release, Work/Release Restrictions Form, Work/School Release / Restrict Discharge Disposition: HOME SELF-CARE
== END 2019-04-16 16:30 | disposition home or self-care (01) ==
LOC: EC 11:15 → 3SCARD 16:09 → INTOOBSV 16:09 → 3SCARD 19:04 → UNDODISIN 04-16 16:30
PROVIDERS: ADMIT Hospitalist; ATTEND Hospitalist
DX: I40.0 Infective myocarditis (principal); I21.A1 Myocardial infarction type 2; B97.89 Other viral agents as the cause of diseases classified elsewhere; P29.89 Other cardiovascular disorders originating in the perinatal period; F17.290 Nicotine dependence, other tobacco product, uncomplicated; R78.1 Finding of opiate drug in blood; Z86.74 Personal history of sudden cardiac arrest; Z82.49 Family history of ischemic heart disease and other diseases of the circulatory system
CPT/HCPCS: 96366 ×3; 96376; 96365; 96375; 99285; 36415; 93005; 93306; 93458; 86747 ×2; 85379; 86658 ×2; 80061; 80053; 82550; 83735; 84484 ×2; 85025 ×3; 85610; 85730 ×2; 81003; 80306; 71046; 71275; 74174; G0378 ×3; C1769 ×2; C1760; C1894; J2250; J2270; J1644 ×2; J2405; J2001; J3010; Q9967 ×2

== ENCOUNTER 2020-04-13 06:17 | Emergency (ER) | payer BC ==
--- NOTE | 2020-04-13 06:42 | ED ---
Abdominal Pain HPI - General Chief Complaint: Abdominal Pain Stated Complaint: RT flank pain Time Seen by Provider: 04/13/20 06:25 Source: patient, RN notes reviewed Mode of arrival: ambulatory Limitations: no limitations - History of Present Illness Initial Comments: Patient is a 20-year-old white male who presents to the emergency department with right upper quadrant pain for several hours. He states that he awoke this morning around 5 AM with sharp shooting pain in the right upper quadrant. He stated that his pain as a 7 out of 10 on a pain scale and he denied wanting any pain medication. He stated that the pain was sharp and constant. He noted that nothing made the pain better or worse at home. He denied any radiating symptoms to his shoulder or chest. Patient stated that he eats junk food but has never had this issue before. He denied any chest pain, shortness of breath, fever, fatigue, chills, night, sweats, nausea, vomiting, diarrhea, constipation - Related Data Home Medications Medication Instructions Recorded Confirmed No Known Home Medications 04/14/19 04/14/19 Allergies Allergy/AdvReac Type Severity Reaction Status Date / Time No Known Allergies Allergy Verified 04/13/20 06:43 Review of Systems ROS Statement: Those systems with pertinent positive or pertinent negative responses have been documented in the HPI. ROS Other: All systems not noted in ROS Statement are negative. Past Medical History Additional Past Medical History / Comment(s): heart murmur History of Any Multi-Drug Resistant Organisms: None Reported Past Surgical History: Heart Catheterization Past Psychological History: No Psychological Hx Reported Smoking Status: Vaper Past Alcohol Use History: Occasional Past Drug Use History: None Reported General Exam Limitations: no limitations General appearance: alert, in no apparent distress Head exam: Present: atraumatic, normocephalic, normal inspection Eye exam: Present: normal appearance, PERRL, EOMI. Absent: scleral icterus, conjunctival injection, periorbital swelling ENT exam: Present: normal exam, mucous membranes moist Neck exam: Present: normal inspection. Absent: tenderness, meningismus, lymphadenopathy Respiratory exam: Present: normal lung sounds bilaterally. Absent: respiratory distress, wheezes, rales, rhonchi, stridor Cardiovascular Exam: Present: regular rate, normal rhythm, normal heart sounds. Absent: systolic murmur, diastolic murmur, rubs, gallop, clicks GI/Abdominal exam: Present: tenderness (Right upper quadrant), guarding, normal bowel sounds Extremities exam: Present: normal inspection, full ROM, normal capillary refill. Absent: tenderness, pedal edema, joint swelling, calf tenderness Back exam: Present: normal inspection Neurological exam: Present: alert, oriented X3, CN II-XII intact Psychiatric exam: Present: normal affect, normal mood Skin exam: Present: warm, dry, intact, normal color. Absent: rash Course Vital Signs 04/13/20 06:18 Temperature 97.6 F Pulse Rate 60 Respiratory 15 Rate Blood Pressure 128/77 O2 Sat by Pulse 98 Oximetry Medical Decision Making - Medical Decision Making Patient got abdominal ultrasound that showed multiple gallstones but no bobo- cholecystic fluid, gallbladder wall thickening. Common bile duct was unobstructed. Patient denied want of any pain medications. Based off testing and labs it is believed that the patient's symptoms are due to gallstones. Labs were grossly within normal limits, the only thing was a mildly elevated lipase at 331. Patient will be referred to general surgery outpatient for follow-up. Patient was instructed to come back to ER if symptoms worse, fever develops or pain increases - Lab Data Result diagrams: 04/13/20 06:50 04/13/20 06:50 Lab Results 04/13/20 04/13/20 04/13/20 Range/Units 06:50 06:50 06:59 WBC 8.1 (3.8-10.6) k/uL RBC 5.35 (4.30-5.90) m/uL Hgb 16.9 (13.0-17.5) gm/dL Hct 47.2 (39.0-53.0) % MCV 88.2 (80.0-100.0) fL MCH 31.6 (25.0-35.0) pg MCHC 35.9 (31.0-37.0) g/dL RDW 12.6 (11.5-15.5) % Plt Count 238 (150-450) k/uL MPV 7.2 Neutrophils % 44 % Lymphocytes % 41 % Monocytes % 8 % Eosinophils % 3 % Basophils % 1 % Neutrophils # 3.6 (1.3-7.7) k/uL Lymphocytes # 3.3 (1.0-4.8) k/uL Monocytes # 0.7 (0-1.0) k/uL Eosinophils # 0.2 (0-0.7) k/uL Basophils # 0.1 (0-0.2) k/uL Sodium 140 (137-145) mmol/L Potassium 4.2 (3.5-5.1) mmol/L Chloride 103 (98-107) mmol/L Carbon Dioxide 27 (22-30) mmol/L Anion Gap 10 mmol/L BUN 18 (9-20) mg/dL Creatinine 0.89 (0.66-1.25) mg/dL Est GFR (CKD-EPI)AfAm >90 (>60 ml/min/1.73 sqM) Est GFR (CKD-EPI)NonAf >90 (>60 ml/min/1.73 sqM) Glucose 100 H (74-99) mg/dL Calcium 10.2 (8.4-10.2) mg/dL Total Bilirubin 0.9 (0.2-1.3) mg/dL AST 24 (17-59) U/L ALT 25 (4-49) U/L Alkaline Phosphatase 73 (38-126) U/L Total Protein 9.4 H (6.3-8.2) g/dL Albumin 5.5 H (3.5-5.0) g/dL Amylase 90 (30-110) U/L Lipase 331 H (23-300) U/L Urine Color Yellow Urine Appearance Clear (Clear) Urine pH 6.0 (5.0-8.0) Ur Specific [place] 1.050 H (1.001-1.035) Urine Protein 1+ H (Negative) Urine Glucose (UA) Negative (Negative) Urine Ketones Negative (Negative) Urine Blood Negative (Negative) Urine Nitrite Negative (Negative) Urine Bilirubin Negative (Negative) Urine Urobilinogen <2.0 (<2.0) mg/dL Ur Leukocyte Esterase Negative (Negative) Urine RBC 1 (0-5) /hpf Urine WBC <1 (0-5) /hpf Hyaline Casts 2 (0-2) /lpf Urine Mucus Many H (None) /hpf Disposition Clinical Impression: Cholelithiasis, Abdominal pain Disposition: HOME SELF-CARE Condition: Stable Instructions (If sedation given, give patient instructions): Abdominal Pain (ED) Additional Instructions: Please return to the Emergency Department if symptoms worsen or any other concerns. Is patient prescribed a controlled substance at d/c from ED?: No Referrals: Jesse Burns DO [Primary Care Provider] - 1-2 days Soraida Shah DO [Doctor of Osteopathic Medicine] - 1-2 days Time of Disposition: 08:08
[2020-04-13 06:58] LABS: Basophils # (A) 0.1 k/uL (0-0.2); Basophils % (A) 1 %; Eosinophils # (A) 0.2 k/uL (0-0.7); Eosinophils % (A) 3 %; HCT 47.2 % (39.0-53.0); HGB 16.9 gm/dL (13.0-17.5); Lymphocytes # (A) 3.3 k/uL (1.0-4.8); Lymphocytes % (A) 41 %; MCH 31.6 pg (25.0-35.0); MCHC 35.9 g/dL (31.0-37.0); MCV 88.2 fL (80.0-100.0); Mean Platelet Volume 7.2; Monocytes # (A) 0.7 k/uL (0-1.0); Monocytes % (A) 8 %; Neutrophils # (A) 3.6 k/uL (1.3-7.7); Neutrophils % (A) 44 %; Platelet Count 238 k/uL (150-450); RBC 5.35 m/uL (4.30-5.90); RDW 12.6 % (11.5-15.5); WBC 8.1 k/uL (3.8-10.6)
[2020-04-13 07:06] LABS: ALT 25 U/L (4-49); AST 24 U/L (17-59); African American GFR (CKD) >90 (>60 ml/min/1.73 sqM); Albumin 5.5 g/dL (3.5-5.0); Alkaline Phosphatase 73 U/L (38-126); Amylase 90 U/L (30-110); Anion Gap 10 mmol/L; Blood Urea Nitrogen 18 mg/dL (9-20); Calcium 10.2 mg/dL (8.4-10.2); Carbon Dioxide 27 mmol/L (22-30); Chloride 103 mmol/L (98-107); Glucose 100 mg/dL (74-99); Lipase 331 U/L (23-300); Non-African American GFR(CKD) >90 (>60 ml/min/1.73 sqM); Potassium 4.2 mmol/L (3.5-5.1); Sodium 140 mmol/L (137-145); Total Bilirubin 0.9 mg/dL (0.2-1.3); Total Protein 9.4 g/dL (6.3-8.2)
[2020-04-13 07:23] LABS: Appearance,Urine Clear (Clear); Bilirubin,Urine Negative (Negative); Blood,Urine Negative (Negative); Color,Urine Yellow; Glucose,Urine (UA) Negative (Negative); Hyaline Casts,Urine 2 /lpf (0-2); Ketones,Urine Negative (Negative); Leukocyte Esterase,Urine Negative (Negative); Mucus,Urine Many /hpf; Nitrite,Urine Negative (Negative); Protein,Urine 1+ (Negative); RBC,Urine 1 /hpf (0-5); Urobilinogen,Urine <2.0 mg/dL (<2.0); WBC,Urine <1 /hpf (0-5)
[2020-04-13] MEDS ORDERED: SODIUM CHLORIDE 0.9% 1,000 ML IV ONE (07:34)
--- NOTE | 2020-04-13 07:40 | US ---
EXAMINATION TYPE: US abdomen limited DATE OF EXAM: 04/13/2020 COMPARISON: CT April 14, 2019 CLINICAL HISTORY: RUQ pain. EXAM MEASUREMENTS: Liver Length: 14.6 cm Gallbladder Wall: 0.3 cm CBD: 0.4 cm Right Kidney: 10.1 x 3.3 x 4.5 cm Pancreas: not well visualized due to midline bowel gas Liver: wnl Gallbladder: multiple mobile shadowing stones Evidence for sonographic Sweeney's sign: Yes CBD: wnl Right Kidney: No hydronephrosis or masses seen Visualized portion of pancreas unremarkable. Visualized portion of liver unremarkable. Gallbladder se en with multiple shadowing mobile gallstones. Wall thickness upper limits of normal. No surrounding f luid. Positive sonographic Sweeney's sign. No right-sided hydronephrosis. IMPRESSION: Intraluminal gallstones without secondary ultrasound evidence for acute cholecystitis. Ho wever in patient with right upper quadrant pain and positive sonographic Sweeney's sign it cannot be e ntirely excluded. Consider HIDA scan follow-up.
[2020-04-13 08:33] VITALS: BP 124/70; PULSE 59; RESP 18; TEMP 89.9
== END 2020-04-13 08:33 | disposition home or self-care (01) ==
LOC: EC 06:17
DX: K80.20 Calculus of gallbladder without cholecystitis without obstruction (principal); F17.290 Nicotine dependence, other tobacco product, uncomplicated; Z95.5 Presence of coronary angioplasty implant and graft
CPT/HCPCS: 36415; 76705; 80053; 81001; 82150; 83690; 85025; 96360; 99284

== ENCOUNTER → 2020-05-29 | Outpatient (CLI) | payer BC | END | disposition home or self-care (01) | LOC: LABWHC1 15:08 | PROVIDERS: ATTEND Surgery | DX: Z20.822 Contact with and (suspected) exposure to COVID-19 (principal) | CPT/HCPCS: U0003; U0005 ==

== ENCOUNTER 2020-05-31 09:59 | Day surgery (SDC) | payer BC ==
[2020-05-30 10:55] VITALS: BMI 25.0
[~2020-05-31 09:59] MED LIST: DEXAMETHASONE SOD PHOSPHATE 4 MG/ML 1 ML VIAL IV ONE; HEPARIN SODIUM,PORCINE 5,000 UNIT/ML 1 ML VIAL SQ PRN; LACTATED RINGERS 1,000 ML IV SCH; LIDOCAINE 1% (10MG/ML) FOR IV START INTRADERMA PRN; MIDAZOLAM 2 MG/2 ML VIAL IV PRN; ONDANSETRON 4 MG/2 ML VIAL IVP ONE; fentaNYL (PF) 50 MCG/ML 2 ML AMP IVP PRN
[2020-05-31] MEDS ORDERED: ONDANSETRON 4 MG/2 ML VIAL ONE (10:33)
[2020-05-31 10:44] LABS: Basophils % (A) 0 %; Eosinophils # (A) 0.1 k/uL (0-0.7); Eosinophils % (A) 1 %; HCT 41.4 % (39.0-53.0); HGB 14.8 gm/dL (13.0-17.5); Lymphocytes # (A) 2.2 k/uL (1.0-4.8); Lymphocytes % (A) 36 %; MCH 31.4 pg (25.0-35.0); MCHC 35.8 g/dL (31.0-37.0); MCV 87.7 fL (80.0-100.0); Mean Platelet Volume 7.4; Monocytes # (A) 0.6 k/uL (0-1.0); Monocytes % (A) 10 %; Neutrophils % (A) 50 %; Platelet Count 215 k/uL (150-450); RBC 4.73 m/uL (4.30-5.90); RDW 12.8 % (11.5-15.5)
[2020-05-31] MEDS ORDERED: HYDROmorphone (PF) 1 MG/ML ONE (12:25)
[2020-05-31] MEDS ORDERED: PROPOFOL 10 MG/ML 20 ML VIAL IV ONE (12:25)
[2020-05-31] MEDS ORDERED: ROCURONIUM 10 MG/ML (5 ML VIAL) IV ONE (12:25)
[2020-05-31] MEDS ORDERED: fentaNYL (PF) 50 MCG/ML 2 ML AMP ONE (12:25)
[2020-05-31] MEDS ORDERED: SUCCINYLCHOLINE CHLORIDE 100 MG/5 ML SYR IV ONE (12:25)
[2020-05-31] MEDS ORDERED: INDOCYANINE GREEN 25 MG VIAL IV ONE (12:25)
[2020-05-31] MEDS ORDERED: LIDOCAINE 1% INJ 10MG/ML (20 ML MDV) ONE (12:25)
[2020-05-31] MEDS ORDERED: MIDAZOLAM 2 MG/2 ML VIAL ONE (12:25)
[2020-05-31] MEDS ORDERED: GLYCOPYRROLATE 0.2 MG/ML 2 ML VIAL ONE (12:25)
[2020-05-31] MEDS ORDERED: NEOSTIGMINE 1 MG/ML 10 ML VIAL ONE (12:25)
[2020-05-31] MEDS ORDERED: BUPIVACAINE-EPI 0.5%-1:200,000 10 ML VIAL SQ ONE (12:40)
[2020-05-31] MEDS ORDERED: LACTATED RINGERS 1,000 ML IV ONE (13:35)
--- NOTE | 2020-05-31 13:49 | P.OP ---
Date of Procedure: 05/31/20 Preoperative Diagnosis: Symptomatic cholelithiasis Postoperative Diagnosis: Symptomatic cholelithiasis Procedure(s) Performed: Robotic cholecystectomy Anesthesia: RENE Surgeon: Soraida Shah Pathology: other (Gallbladder and contents) Condition: stable Disposition: same day Indications for Procedure: 20-year-old male presents for an elective cholecystectomy. He had a recent episode of symptomatic cholelithiasis that resulted in an emergency department visit. He has had occasional right upper quadrant pain since. Plan was made for robotic cholecystectomy. Risks, benefits and alternatives were provided to the patient. He did provide consent prior to attending the operating suite. Operative Findings: Cholelithiasis Description of Procedure: The patient was brought to the operating suite and placed in supine position on the operating table. Sedation was provided by anesthesia and the patient underwent endotracheal patient. He was prepped and draped in regular sterile fashion. A infra vocal incision was made and dissection was carried to the fascia. The fascia was incised and an 8 mm port was placed. Pneumoperitoneum was then achieved. The patient was then appropriately positioned. 3 additional 8 mm ports were placed. 2 were placed in the right lower quadrant and one was placed in the left lower quadrant. The robot was then docked. The gallbladder was then grasped and retracted and dissection was carried along the anterior tinea to skeletonize the cystic duct and cystic artery. Critical view was obtained. ICG injection was made prior to the procedure and the cystic duct was clearly visualized using this technology. The cystic duct was skeletonized. 2 clips were placed proximally one was placed distally and the cystic duct was ligated. The cystic artery was then skeletonized, 2 clips were placed proximally one was placed distally and the cystic artery was ligated. Dissection was then carried to remove the gallbladder from the gallbladder fossa on the liver bed. This was performed with cautery. Hemostasis was noted to be maintained. The gallbladder plate was placed in an Endo Catch bag and removed from the abdomen. Copious muss irrigation was placed in the right upper quadrant. This was then suctioned. Pneumoperitoneum was released and all trochars were removed from the abdomen after the robot was undocked. The infraumbilical fascial incision was closed with interrupted 0 Vicryl suture. All skin incisions were then closed with 4-0 Vicryl subcuticular suture. Sterile dressing was applied. The patient was awakened in the operating suite and taken to postanesthesia care unit in stable condition.
[2020-05-31 13:58] VITALS: TEMP 97.7
[2020-05-31 14:08] VITALS: RESP 16
[2020-05-31] MEDS ORDERED: HYDROmorphone 0.5 MG/0.5 ML SYRINGE IVP ONE (14:15)
[2020-05-31] MEDS ORDERED: HYDROcodone/APAP 5-325MG 1 EACH TAB ONE (14:56)
[2020-05-31] MEDS ORDERED: HYDROcodone/APAP 5-325MG 1 EACH TAB PO ONE (15:00)
[2020-05-31 15:05] VITALS: BP 131/82; PULSE 64
== END 2020-05-31 15:41 | disposition home or self-care (01) ==
LOC: OR 09:59
PROVIDERS: ATTEND Surgery
DX: K80.10 Calculus of gallbladder with chronic cholecystitis without obstruction (principal); R01.1 Cardiac murmur, unspecified; I25.2 Old myocardial infarction; F17.210 Nicotine dependence, cigarettes, uncomplicated
CPT/HCPCS: 47563; S2900; 85025; 86850; 86900; 86901; 88304

== ENCOUNTER 2023-10-08 19:54 | Emergency (ER) | payer BC ==
[2023-10-08 20:00] VITALS: TEMP 98.2
--- NOTE | 2023-10-08 21:22 | ED ---
Chest Pain HPI - General Chief Complaint: Chest Pain Stated Complaint: chest pain, sent by Time Seen by Provider: 10/08/23 21:19 Source: patient, RN notes reviewed Mode of arrival: ambulatory Limitations: no limitations - History of Present Illness Initial Comments: 23-year-old male with history of NSTEMI presenting with chest pain x 4 days. Describes the pain as pressure in the left side of his chest with occasional sharp pains. Pain does not radiate. Denies other symptoms such as nausea, vomiting, fever, chills, abdominal pain. Mother is present upon examination and states patient frequently engages in heavy lifting at the gym. Patient denies any specific injury. He is not taking any medications. Denies blood thinners. Tolerating orals well. - Related Data Previous Rx's Medication Instructions Recorded HYDROcodone/APAP 5-325MG [[place] 1 tab PO Q6HR PRN 3 Days #12 tab 05/31/20 5-325] Allergies Allergy/AdvReac Type Severity Reaction Status Date / Time No Known Allergies Allergy Verified 10/08/23 20:00 Review of Systems ROS Statement: Those systems with pertinent positive or pertinent negative responses have been documented in the HPI. ROS Other: All systems not noted in ROS Statement are negative. EKG Findings - EKG Results: EKG: interpreted by [facility] (EKG reveals normal sinus rhythm with no ST changes. Ventricular rate 76 bpm, ND interval 168, QRS duration 96, QT/QTc 359/389.) Past Medical History Past Medical History: Myocardial Infarction ([place]) Additional Past Medical History / Comment(s): heart murmur History of Any Multi-Drug Resistant Organisms: None Reported Past Surgical History: Heart Catheterization Past Psychological History: No Psychological Hx Reported Smoking Status: Vaper Past Alcohol Use History: None Reported Past Drug Use History: None Reported General Exam Limitations: no limitations General appearance: alert, in no apparent distress Head exam: Present: atraumatic, normocephalic, normal inspection Eye exam: Present: normal appearance, PERRL, EOMI. Absent: scleral icterus, conjunctival injection, periorbital swelling Neck exam: Present: normal inspection. Absent: tenderness, meningismus, lymphadenopathy Respiratory exam: Present: normal lung sounds bilaterally. Absent: respiratory distress, wheezes, rales, rhonchi, stridor, chest wall tenderness Cardiovascular Exam: Present: regular rate, normal rhythm, normal heart sounds. Absent: systolic murmur, diastolic murmur, rubs, gallop, clicks GI/Abdominal exam: Present: soft, normal bowel sounds. Absent: distended, tenderness, guarding, rebound, rigid Extremities exam: Present: normal inspection, full ROM, normal capillary refill. Absent: tenderness, pedal edema, joint swelling, calf tenderness Back exam: Present: normal inspection Neurological exam: Present: alert, oriented X3 Psychiatric exam: Present: normal affect, normal mood Skin exam: Present: warm, dry, intact, normal color. Absent: rash Course Vital Signs 10/08/23 10/08/23 19:57 22:19 Temperature 98.2 F Pulse Rate 71 74 Respiratory 16 18 Rate Blood Pressure 141/82 110/70 O2 Sat by Pulse 99 99 Oximetry Chest Pain MDM - MDM Was pt. sent in by a medical professional or institution ([facility], [facility] [facility], urgent care, hospital, or senior care...) When possible be specific @ -No Did you speak to anyone other than the patient for history (EMS, parent, family, police, friend...)? What history was obtained from this source @ -Patient's parents supplemented history Did you review nursing and triage notes (agree or disagree)? Why? @ -I reviewed and agree with nursing and triage notes Were old charts reviewed (outside hosp., previous admission, EMS record, old EKG, old radiological studies, urgent care reports/EKG's, senior care records)? Report findings @ -Previous ER labs and catheterization results reviewed Differential Diagnosis (chest pain, altered mental status, abdominal pain women, abdominal pain men, vaginal bleeding, weakness, fever, dyspnea, syncope, headache, dizziness, GI bleed, back pain, seizure, CVA, palpatations, mental health, musculoskeletal)? @ -Differential Chest Pain: Stable Angina, Unstable Angina, STEMI, NSTEMI Aortic Dissection, Pneumothorax, Musculoskeletal, Esophageal Spasm GERD, Cholecystitis, Pancreatitis, Zoster, this is not meant to be an all-inclusive list. EKG interpreted by me (3pts min.). @ -As above X-rays interpreted by me (1pt min.). @ -Chest x-ray reveals no acute process CT interpreted by me (1pt min.). @ -None done U/S interpreted by me (1pt. min.). @ -None done What testing was considered but not performed or refused? (CT, X-rays, U/S, labs)? Why? @ -None What meds were considered but not given or refused? Why? @ -None Did you discuss the management of the patient with other professionals (professionals i.e. , PA, [employer], lab, RT, psych nurse, medical social worker, director quality systems, teacher, environmental conservation officer, case aide)? Give summary @ -No Was smoking cessation discussed for >3mins.? @ -No Was critical care preformed (if so, how long)? @ -No Were there social determinants of health that impacted care today? How? (Homelessness, low income, unemployed, alcoholism, drug addiction, transportation, low edu. Level, literacy, decrease access to med. care, [facility], rehab)? @ -No Was there de-escalation of care discussed even if they declined (Discuss DNR or withdrawal of care, Hospice)? DNR status @ -No What co-morbidities impacted this encounter? (DM, HTN, Smoking, COPD, CAD, Cancer, CVA, ARF, Chemo, Hep., AIDS, mental health diagnosis, sleep apnea, morbid obesity)? @ -None Was patient admitted / discharged? Hospital course, mention meds given and route, prescriptions, significant lab abnormalities, going to OR and other pertinent info. @ -Patient was discharged. Patient was seen and evaluated for chest pain x 4 days. He has a history of an NSTEMI 4 years ago. He does not currently take any medications, has no other risk factors. Vital signs and physical examination is unremarkable. Lab work including CBC, CMP, troponin, magnesium is unremarkable. Patient is given oral aspirin. Chest x-ray is unremarkable. EKG reveals normal sinus rhythm with no ST changes. Upon reevaluation, patient states symptoms have improved. I offered admission at this time for serial troponins and monitoring, however patient states he would like to be discharged at this time. I believe this is reasonable as this time as there is a low suspicion for ACS. Advised to close follow-up with PCP and strict return par ameters discussed with patient and parents and they show understanding and agree to plan. Case was discussed with my attending Dr. Godwin. Patient was discharged in stable condition. Undiagnosed new problem with uncertain prognosis? @ -No Drug Therapy requiring intensive monitoring for toxicity (Heparin, Nitro, Insulin, Cardizem)? @ -No Were any procedures done? @ -No Diagnosis/symptom? @ -Chest pain Acute, or Chronic, or Acute on Chronic? @ -Acute Uncomplicated (without systemic symptoms) or Complicated (systemic symptoms)? @ -Uncomplicated Side effects of treatment? @ -No Exacerbation, Progression, or Severe Exacerbation? @ -No Poses a threat to life or bodily function? How? (Chest pain, [place], [place], pneumonia, PE, COPD, DKA, ARF, appy, cholecystitis, CVA, Diverticulitis, Homicidal, Suicid al, threat to staff... and all critical care pts) @ -Unlikely at this time Disposition Clinical Impression: Chest pain Disposition: HOME SELF-CARE Condition: Stable Instructions (If sedation given, give patient instructions): Chest Pain (ED) Additional Instructions: Please follow-up with PCP. Please return to the Emergency Department if symptoms worsen or any other concerns. Is patient prescribed a controlled substance at d/c from ED?: No Referrals: Jesse Burns DO [Primary Care Provider] - 1-2 days Time of Disposition: 22:33
[2023-10-08 21:27] LABS: Basophils % (A) 0 %; Eosinophils # (A) 0.1 k/uL (0-0.7); Eosinophils % (A) 1 %; HCT 43.5 % (39.0-53.0); HGB 14.7 gm/dL (13.0-17.5); Lymphocytes # (A) 2.9 k/uL (1.0-4.8); Lymphocytes % (A) 37 %; MCH 29.4 pg (25.0-35.0); MCHC 33.8 g/dL (31.0-37.0); Mean Platelet Volume 7.6; Monocytes # (A) 0.7 k/uL (0-1.0); Monocytes % (A) 9 %; Neutrophils # (A) 3.8 k/uL (1.3-7.7); Neutrophils % (A) 50 %; Platelet Count 260 k/uL (150-450); WBC 7.7 k/uL (3.8-10.6)
--- NOTE | 2023-10-08 21:31 | XR ---
EXAMINATION TYPE: XR chest 2V DATE OF EXAM: 10/08/2023 8:38 PM CLINICAL INDICATION:Male, 23 years old with history of Chest Pain COMPARISON: Chest radiograph 04/14/2019 TECHNIQUE: Chest radiograph frontal and lateral views. FINDINGS: Lungs/Pleura: There is no evidence of pleural effusion, focal consolidation, or pneumothorax. Pulmonary vascularity: Unremarkable. Heart/mediastinum: Cardiomediastinal silhouette is unremarkable. Musculoskeletal: No acute osseous pathology. IMPRESSION: No acute cardiopulmonary disease/process.
[2023-10-08 21:34] LABS: ALT 34 U/L (4-49); AST 31 U/L (17-59); African American GFR (CKD) >90 (>60 ml/min/1.73 sqM); Albumin 5.2 g/dL (3.5-5.0); Alkaline Phosphatase 72 U/L (38-126); Anion Gap 10 mmol/L; Blood Urea Nitrogen 17 mg/dL (9-20); Calcium 9.8 mg/dL (8.4-10.2); Carbon Dioxide 23 mmol/L (22-30); Chloride 108 mmol/L (98-107); Glucose 90 mg/dL (74-99); Magnesium 2.2 mg/dL (1.6-2.3); Non-African American GFR(CKD) >90 (>60 ml/min/1.73 sqM); Potassium 4.1 mmol/L (3.5-5.1); Sodium 141 mmol/L (137-145); Total Bilirubin 0.6 mg/dL (0.2-1.3); Total Protein 8.4 g/dL (6.3-8.2)
[2023-10-08 21:38] LABS: Partial Thromboplastin Time 24.1 sec (22.0-30.0); Prothrombin Time 10.8 sec (10.0-12.5)
[2023-10-08] MEDS: ASPIRIN 81 MG PO STA (22:01)
[2023-10-08 22:20] VITALS: BP 110/70; PULSE 74; RESP 18
== END 2023-10-08 22:45 | disposition home or self-care (01) ==
LOC: EC 19:54
DX: R07.89 Other chest pain (principal); F17.290 Nicotine dependence, other tobacco product, uncomplicated
CPT/HCPCS: 36415; 71046; 80053; 83735; 84484; 85025; 85610; 85730; 93005; 99285